=== PATIENT | male | born 1955 | race Caucasian/White ===

== ENCOUNTER 2020-05-03 13:06 | Emergency (ER) | payer OTHER, SELFPAY ==
--- NOTE | ~2020-05-03 | XR_ITS ---
EXAMINATION: [id number] EXAM DATE: 05/03/2020 13:46 INDICATION: Initial encounter following injury, with pain of the right ribs, fall. TECHNIQUE: Frontal projection of the upper right ribs, frontal projection of the lower right ribs, ob lique projection of the right ribs, frontal chest x-ray(s) for interpretation. There is no prior asif dy for comparison. FINDINGS: There is possible right 8th rib nondisplaced fracture anteriorly. Right 10th rib fracture l aterally which appears most likely a chronic healed finding. There is no soft tissue abnormality see n. No confluent consolidation, pneumothorax or pleural effusion suspected. IMPRESSION: Possible acute right 8th rib fracture. Reviewed, dictated and finalized at location A.
[2020-05-03 13:16] VITALS: BP 147/82; PULSE 81; RESP 20; TEMP 37.1; O2SAT 97
--- NOTE | 2020-05-03 13:22 | ED.GENADULT ---
HPI - General Adult General Chief complaint: Chest Pain Stated complaint: Rib pain Time Seen by Provider: 05/03/20 13:23 Source: patient and RN notes reviewed Mode of arrival: ambulatory Limitations: no limitations History of Present Illness HPI narrative: 64-year-old male presents to the [facility] with right lower anterior rib pain. States he was crawling through a crawl space when he dropped onto a block hitting the lower right anterior ribs. [place] and heard a pop from the area. No swelling or bruising noted. Denies chest pain or shortness of breath. No abdominal pain. Related Data Home Medications Medication Instructions Recorded Confirmed alprazolam 0.25 mg PO DAILY 05/03/20 05/03/20 hydrocodone-acetaminophen 7.5 tablet PO DIRECTED 05/03/20 05/03/20 metformin 500 mg PO BID 05/03/20 05/03/20 Allergies Allergy/AdvReac Type Severity Reaction Status Date / Time No Known Allergies Allergy Unverified 08/09/13 14:05 Review of Systems Review of Systems: Narrative: CONSTITUTIONAL: Denies fever, chills, or sweats. EYES: Denies visual changes, redness, or discharge. ENT: Denies rhinorrhea, congestion, sore throat, or otalgia. CARDIOVASCULAR: Denies chest pain, palpitations, or edema. Right lower anterior rib pain RESPIRATORY: Denies cough or dyspnea. GASTROINTESTINAL: Denies abdominal pain, nausea, vomiting, or diarrhea. GENITOURINARY: Denies dysuria or hematuria. SKIN: Denies rash or itching. MUSCULOSKELETAL: Denies back pain, joint pain, or myalgia. NEUROLOGIC: Denies headache, numbness, or weakness. PSYCHIATRIC: Denies anxiety or depression. All other systems reviewed are negative, except as documented in HPI. PMFSH Social History Social History Gender identity (if verbalized by the patient): Male Comments At the time of my signature, I reviewed and agree with the nursing past medical, surgical, social, and family history. There is no relevant family history pertinent to the patient complaint. Exam Narrative: Exam Narrative: GENERAL: This is a well-nourished, well-developed patient, in no apparent distress. HEAD: normocephalic, atraumatic. EYES: PERRL. Sclera clear/white. Vision is grossly intact. EARS: External ears normal NECK: Neck supple, non-tender without lymphadenopathy, masses or thyromegaly. CARDIOVASCULAR: Regular rate and rhythm without murmurs, gallops, or rubs. Right lower anterior ribs tender to palpation with no deformity RESPIRATORY: Clear to auscultation. Breath sounds equal bilaterally. No wheezes, rales, or rhonchi. GASTROINTESTINAL: Abdomen soft, non-tender SKIN: warm, intact with no suspicious lesions or rash, good texture and turgor. No bruising or swelling noted NEURO: awake, alert, and oriented to person, place and time. There were no obvious focal neurologic abnormalities. EXTREMITIES: No joint tenderness, effusion, or edema noted. No calf tenderness. Negative Homans sign bilaterally. BACK: Nontender without deformity. No CVA tenderness. Course Vital Signs Vital signs: Vital Signs Temperature 98.8 F 05/03/20 13:16 Pulse Rate 81 05/03/20 13:16 Respiratory Rate 20 05/03/20 13:16 Blood Pressure 147/82 H 05/03/20 13:16 Pulse Oximetry 97 05/03/20 13:16 Temperature 98.8 F 05/03/20 13:27 Pulse Rate 81 05/03/20 13:27 Respiratory Rate 20 05/03/20 13:27 Blood Pressure 147/82 H 05/03/20 13:27 Pulse Oximetry 97 05/03/20 13:27 Reviewed Medical Decision Making MDM Narrative Medical decision making narrative: Discharge instructions reviewed with patient, as well as provided in writing per nursing staff. The instructions also include specific and strict return/GO TO THE ER as well as f/u information. All questions have been answered, and the patient deny any further questions with discharge and discharge plan. Vital Signs Vital Signs: Vital Signs Temperature 98.8 F 05/03/20 13:16 Pulse Rate 81 0
[2020-05-03 13:27] VITALS: BP 147/82; PULSE 81; RESP 20; TEMP 37.1; O2SAT 97
== END 2020-05-03 14:15 | disposition home or self-care (01) ==
PROVIDERS: Emergency Provider Nurse Practitioner; PCP Family Medicine
DX: S22.31XA Fracture of one rib, right side, initial encounter for closed fracture (principal); W22.8XXA Striking against or struck by other objects, initial encounter; I10 Essential (primary) hypertension; E11.9 Type 2 diabetes mellitus without complications
CPT/HCPCS: 71101; 99203; G0463